=== PATIENT | male | born 1985 | race Caucasian/White ===

== ENCOUNTER 2017-06-26 06:38 | Emergency (ER) | payer OTHER ==
[~2017-06-26] VITALS: Ht 182.9 cm; Wt 88.5 kg
[2017-06-26] MEDS ORDERED: ULTRAM 50MG TAB50 MG PO (08:21)
[2017-06-26] MEDS ORDERED: IBUPROFEN 800800 MG PO (08:21)
[2017-06-26] MEDS ORDERED: AUGMENTIN 500-1 EACH PO (08:21)
[2017-06-26] MEDS ORDERED: BACTRIM DS TAB1 EACH PO (08:21)
[2017-06-26 08:29] VITALS: BP 130/81
== END 2017-06-26 08:30 | disposition home or self-care (01) ==
LOC: M.ERS 06:38
DX: N49.2 Inflammatory disorders of scrotum (principal)

== ENCOUNTER 2017-06-28 07:54 | Inpatient (IN) | payer OTHER ==
[~2017-06-28] VITALS: Ht 182.9 cm; Wt 90.7 kg
[~2017-06-28 07:54] MED LIST: AUGMENTIN 500-1 EACH PO; BACTRIM DS TAB1 EACH PO; IBUPROFEN 800800 MG PO; ULTRAM 50MG TAB50 MG PO
[2017-06-28 08:06] VITALS: BP 142/89
[2017-06-28 09:22] LABS: HEMATOCRIT 43.8 % (42.0-52.0); HEMOGLOBIN 14.4 gm/dL (14.0-18.0); MCH 27.9 pg (26.0-34.0); MCHC 32.9 g/dL (28.0-37.0); MCV 84.8 fL (80.0-100.0); MPV 8.4 fl. (7.2-11.1); NUCLEATED RBCS 0 /100WBC; PLATELET COUNT* 271 thou/uL (150-400); RBC 5.16 mil/uL (4.50-6.00); RDW-CV 14.4 % (10.5-14.5); WBC 17.9 thou/uL (4.0-11.0)
[2017-06-28 09:30] LABS: CREATININE 1.2 mg/dL (0.6-1.3); POTASSIUM 3.1 mmol/L (3.5-5.1); PROTIME 9.6 Seconds (9.20-11.50)
[2017-06-28 09:44] LABS: TOTAL BILIRUBIN 0.7 mg/dL (<0.1-1.0)
[2017-06-28 09:50] VITALS: BP 116/84
[2017-06-28 10:00] VITALS: BP 132/86
--- NOTE | 2017-06-28 10:00 | NUR ---
PATIENT ARRIVED TO UNIT FROM ER AT 0950. ALERT AND ORIENTED X 4. VITAL SIGNS STABLE ON ROOM AIR. IV PATENT WITH VANC INFUSING. ORIENTED PATIENT TO ROOM. CALL LIGHT WITHIN REACH. NURSING WILL CONTINUE TO MONITOR.
[2017-06-28 10:14] LABS: ABSOLUTE EOSINOPHILS 0.2 thou/uL (0.0-0.7); ABSOLUTE MONOCYTES 0.9 thou/uL (0.0-1.2); ABSOLUTE NEUTROPHILS 14.9 thou/uL (1.6-8.1); PLATELET ESTIMATE ADEQUATE
[2017-06-28 15:33] VITALS: BP 109/67
--- NOTE | 2017-06-28 16:44 | NUR ---
PATIENT ALERT AND ORIENTED X 4. VITAL SIGNS STABLE ON ROOM AIR. AFEBRILE. PERRLA. UP AD SERGE IN ROOM AND AMBULATING IN HALLWAYS. IV PATENT WITH FLUIDS INFUSING. DENIES NAUSEA. PAIN BEING MANAGED WITH PO PAIN MEDICATION. RIGHT THIGH ABSCESS AND LEFT SCROTUM ABSCESS RED, WARM, AND DRAINING AT THIS TIME. PICTURES TAKEN UPON ADMISSION. HOURLY ROUNDS MAINTAINED THROUGHOUT THE SHIFT. CALL LIGHT WITHIN REACH. NURSING WILL CONTINUE TO MONITOR.
[2017-06-28 20:20] VITALS: BP 123/81
[2017-06-29 03:45] LABS: HEMATOCRIT 37.9 % (42.0-52.0); MCH 27.8 pg (26.0-34.0); MCHC 32.7 g/dL (28.0-37.0); MCV 84.9 fL (80.0-100.0); RBC 4.46 mil/uL (4.50-6.00); RDW-CV 14.4 % (10.5-14.5); WBC 12.9 thou/uL (4.0-11.0)
[2017-06-29 04:00] LABS: HEMOGLOBIN 12.4 gm/dL (14.0-18.0)
[2017-06-29 04:05] LABS: CALCIUM 8.1 mg/dL (8.5-10.1); CREATININE 1.1 mg/dL (0.6-1.3); POTASSIUM 3.6 mmol/L (3.5-5.1)
--- NOTE | 2017-06-29 07:36 | NUR ---
Alert and oriented x 4. Up independently in room. Abscesses are causing him pain, morphine was ordered for pain. He has 3 different IV antibiotics that he's on. Vitals were stable. he slept well.
[2017-06-29 08:45] VITALS: BP 125/68
[2017-06-29 09:35] VITALS: BP 123/81
[2017-06-29 15:53] VITALS: BP 140/81
--- NOTE | 2017-06-29 18:10 | NUR ---
PATIENT ALERT AND ORIENTED X 4. VITAL SIGNS STABLE ON ROOM AIR. AFEBRILE. PERRLA. UP AD SERGE IN ROOM AND AMBULATING HALLWAYS. IV'S TO LEFT AND RIGHT FOREARM PATENT AND SALINE LOCKED. PAIN AND NAUSEA BEING MANAGED WITH IV MEDICATION. HAD INCISION AND DRAINAGE TODAY TO LEFT SCROTUM, RIGHT MEDIAL THIGH, AND RIGHT LATERAL THIGH. DRESSINGS TO THESE INCISIONS ARE INTACT WITH LITTLE SEROSANGUINOUS DRAINAGE NOTED ON DRESSING. DRESSING TO RIGHT MEDIAL THIGH CHANGED BECAUSE IT FELL OFF. 4X4'S AND BORDERED GAUZE. HOURLY ROUNDS MAINTAINED THROUGHOUT THE SHIFT. CALL LIGHT WITHIN REACH. NURSING WILL CONTINUE TO MONITOR.
[2017-06-29 20:30] VITALS: BP 120/71
[2017-06-29 23:45] VITALS: BP 107/58
[2017-06-30 03:45] VITALS: BP 109/50
[2017-06-30 03:59] LABS: HEMOGLOBIN 12.7 gm/dL (14.0-18.0); MCHC 32.6 g/dL (28.0-37.0); MCV 85.9 fL (80.0-100.0); MPV 7.7 fl. (7.2-11.1); RBC 4.54 mil/uL (4.50-6.00); RDW-CV 14.1 % (10.5-14.5); WBC 13.1 thou/uL (4.0-11.0)
[2017-06-30 04:08] LABS: CALCIUM 7.9 mg/dL (8.5-10.1); CREATININE 0.9 mg/dL (0.6-1.3); POTASSIUM 3.7 mmol/L (3.5-5.1)
--- NOTE | 2017-06-30 06:47 | NUR ---
Alert and oriented x 4. He has bulky dressings x 3 to I&D sites. He's up independently in the room. He's voiding well. Vitals have been stable. He's been having pain meds every 2 hours. He has slept well.
[2017-06-30 07:52] VITALS: BP 111/62
--- NOTE | 2017-06-30 12:01 | NUR ---
CM SPOKE TO THE PATIENT TO DISCUSS HOME SITUATION, DISCHARGE PLANNING, AND TO INFORM OF THE ROLE OF CM. PATIENT ALER, ORIENTED, AND INDEPENDENT WITH ADL'S. PATIENT WORKS AND DRIVES. PATIENT RESIDES AT HOME WITH SIGNIFICANT OTHER AND CHILDREN. PATIENT USES 0 DME. PATIENT HAS NO HX OF HH. PATIENT DOES NOT CURRENTLY HAVE INSURANCE. CM SPOKE TO THE PATIENT TO DISCUSS THE DR'S ORDER FOR ZYVOX AT D/C. PATIENT IN AGREEMENT AND INFORMS THAT HE WILL NEED ASSISTANCE WITH GETTING THR MEDICATION. CM TO CONTACT ZYVOX ASSIST. CM WILL REMAIN AVIALABLE TO ASSIST AND FOLLOW NEEDED.
--- NOTE | 2017-06-30 14:46 | NUR ---
WOUND NURSE: PATIENT SEEN PERTAINING TO SCROTAL AND THIGH LESIONS. PATIENT WAS PROVIDED WITH EDUCATION PERTAINING TO WOUND MANAGEMENT, NUTRITIONAL REQUIREMENTS, POTENTIAL COMPLICATIONS, AND REPORTABLE SIGNS AND SYMPTOMS. PATIENT REPORTS HE UNDERSTANDS. ALSO INFORMED HIM THAT KATHLEEN ALEXANDER RN WILL PROBABLY COME SEE HIM TOMORROW FOR FOLLOWUP. ACCORDING TO STAFF NURSE CARING FOR PATIENT, SURGEON HAS ALREADY MANAGED WOUND TODAY [facility]N WOUND CARE NURSING NOT TO ADDRESS WOUND CARE TODAY.
[2017-06-30 16:00] VITALS: BP 112/60
--- NOTE | 2017-06-30 17:09 | NUR ---
PATIENT REMAINS ALERT AND ORIENTED. ATTEMPTED HYDROCODONE THIS AM BUT PATIENT VOMITED SHORTLY AFTER. PATIENT REQUESTED TO TRY PERCOCET. PERCOCET GIVEN WITH DINNER. PER PATIENT WHEN SURGERY ROUNDED THIS AFTERNOON THEY REQUESTED THE PACKING NOT BE CHANGED TODAY AND WOUND CARE COULD SEE PATIENT TOMORROW FOR TEACHING. PATIENT AMBULATES AD SERGE. REMAINS IN CONTACT ISOLATION. CALL LIGHT WITHIN REACH.WILL CONTINUE TO MONITOR.
[2017-06-30 20:00] VITALS: BP 126/89
[2017-07-01 00:16] VITALS: BP 127/59
--- NOTE | 2017-07-01 05:37 | NUR ---
ASSUMED CARE OF PT AT 1900 ALERT AND ORIENTED X 4 VS AND ASSESSMENT STABLE PT HAD PAIN MEDS X3 AND SLEPT THROUGH THE NIGHT. WILL CONTINUE PLAN OF CARE.
[2017-07-01 08:40] VITALS: BP 124/62
[2017-07-01 10:18] VITALS: BP 124/62
[2017-07-01] MEDS ORDERED: ZYVOX600 MG PO (10:36)
[2017-07-01 10:37] VITALS: BP 124/62
--- NOTE | 2017-07-01 10:45 | NUR ---
WOUND CARE NOTE: CONSULT RECEIVED FOR ABSCESSES/SCROTAL, THIGH, BUTTOCKS PATIENT IS S/P I&D OF ABSCESSES- 06/29/17. FULL THICKNESS ULCERATIONS X3 GROWING PRESUMPTIVE MRSA. COORDINATED WITH PATIENT'S RN FOR PRE-MEDICATION FOR PAIN. LEFT SIDE OF SCROTUM: FULL THICKNESS ULCERATION MEASURING 3X0.8X0.7. RED, MOIST WOUND BED. ANGELITA-WOUND WITH SLIGHT INFLAMMATION. GENTLY CLEANSED WITH WOUND CLEANSER. PACKED WITH 1/4" IODOFORM GAUZE. COVERED WITH 4X4. WOUND IS DRAINING MODERATE AMOUNTS OF SEROSANGUINEOUS DRAINAGE. RIGHT THIGH: FULL THICKNESS ULCERATION MEASURING 1X3X2.1. RED, MOIST WOUND BED. ANGELITA-WOUND WITH SLIGHT INFLAMMATION. GENTLY CLEANSED WITH WOUND CLEANSER. PACKED WITH 1/4" IODOFORM GAUZE. COVERED WITH BORDERED GAUZE. WOUND IS DRAINING MODERATE AMOUNTS OF SEROSANGUINEOUS DRAINAGE. RIGHT TROCHANTER: FULL THICKNESS ULCERATION MEASURING 1X0.6X1. RED, MOIST WOUND BED. ANGELITA-WOUND INTACT. GENTLY CLEANSED WITH WOUND CLEANSER. PACKED WITH 1/4" IODOFORM GAUZE. COVERED WITH BORDERED GAUZE. WOUND IS DRAINING MODERATE AMOUNTS OF SEROSANGUINEOUS DRAINAGE. EDUCATED PATIENT ON: NUTRITION FOR WOUND HEALING SMOKING CESSATION WASHING HANDS PRIOR TO DRESSING CHANGES HOW TO PERFORM DRESSING CHANGES S/S OF INFECTION NO SOAKING IN TUB BATHS PATIENT COMMUNICATED UNDERSTANDING TO ALL EDUCATION AND DID NOT VOICE ANY FURTHER QUESTIONS. RECOMMEND NO SMOKING ENCOURAGE GOOD NUTRITION AND HYDRATION DAILY DRESSING CHANGES
[2017-07-01] MEDS ORDERED: PERCOCET PO (11:09)
--- NOTE | 2017-07-01 12:20 | NUR ---
PATIENT DISCHARGED TO HOME AT THIS TIME. IV REMOVED. WOUND CARE INSTRUCTED PATIENT ON WOUND CARE. PATIENT WAS ABLE TO PACK WOUND HIMSLF. SCRIPTS GIVEN. ZYVOX WILL BE DELIVERED TO PATIENTS HOME TODAY. PATIENT AND SIGNIFICANT OTHER VERBALIZE UNDERSTANDING OF DC INSTRUCTIONS.
--- NOTE | 2017-09-27 10:04 | OP ---
[address] [address] OPERATIVE REPORT Name: DEEP HERRERA Room: [address] IN M.R.#: [id number] Admission: 06/28/17 Attend Phys: Diane Bocanegra MD Discharge: 07/01/17 Date of : 89 Report #: [id number] THIS REPORT FOR: //name// CC: [facility] physician/PCP Diane Bocanegra PREOPERATIVE DIAGNOSES: Scrotal abscess, medial thigh abscess and lateral thigh abscess. PROCEDURE: Incision and drainage of multiple abscesses. SURGEON: Tho Heller MD INDICATIONS: This is a 31-year-old white male who presented to the Emergency Room a few days ago with a thigh and scrotal abscess. Apparently, a small incision was placed in one of those abscesses, started on antibiotics, he had already been on oral antibiotics. The patient came back approximately 24 hours ago, was put on General Surgery Service and given antibiotics. I saw him this morning after I was consulted for the scrotal abscess and deemed that he needs incision and drainage of all the abscesses. He was given this option. He wished to proceed with that as he is progressively getting worse with just antibiotics. He presents now for incision and drainage. He understands risks of bleeding, infection and other procedures, cardiovascular and pulmonary complications. I did talk to the General Surgery Service. They are unavailable to be present for the incision and drainage until much later today and I deemed that it was necessary to proceed. DESCRIPTION OF PROCEDURE: Informed consent was obtained. The patient was prepped and draped in the supine position. First, I did an incision and drainage of the lateral thigh abscess, it was approximately 1 cm across. I made about a 2 cm incision over the top of it and drained all the pockets of abscess, had just small amount of purulence in it, irrigated it out and then used cautery for the skin edges and then packed it with half-inch plain gauze. Next, I moved up to the anterior surface of the thigh and made an incision approximately 4-5 cm in length. All the pockets were broken up. It was copiously irrigated. Skin edges and the deep area was cauterized and likewise this was packed. Similar procedure was done on the scrotal, left side of the scrotum, which was about 6 cm incision and again the skin edges were cauterized and some deeper areas. Copious irrigation was used and then packed thoroughly. Mesh panties were in place. We will consult wound nurse, consult Infectious Disease to try to consolidate antibiotics. Cultures were taken from the abscesses, aerobic and anaerobic. The patient tolerated this well and was taken to recovery room in good condition. <ELECTRONICALLY SIGNED> By: Tho Heller MD 09/27/17 1004 1140 [id number] Heller MD /nt
== END 2017-07-01 12:22 | disposition home or self-care (01) | DRG 603 ==
LOC: M.ERS 07:54 → M.TBA-ER 09:06 → M.ORTHSURG 09:06
PROVIDERS: Family Medicine; Surgery; ADMIT Internal Medicine
PROC: 0V95XZZ Drainage of Scrotum, External Approach (ICD-10-PCS; principal; 2017-06-28)
PROC: 0H9HXZZ Drainage of Right Upper Leg Skin, External Approach (ICD-10-PCS; principal; 2017-06-28)
DX: L03.115 Cellulitis of right lower limb (principal); L02.415 Cutaneous abscess of right lower limb; N49.2 Inflammatory disorders of scrotum; B95.62 Methicillin resistant Staphylococcus aureus infection as the cause of diseases classified elsewhere; Z79.899 Other long term (current) drug therapy

== ENCOUNTER 2017-10-20 06:12 | Emergency (ER) | payer OTHER ==
[~2017-10-20] VITALS: Ht 182.9 cm; Wt 86.2 kg
[~2017-10-20 06:12] MED LIST changes: +PERCOCET PO; +ZYVOX600 MG PO
[2017-10-20 06:59] LABS: ABSOLUTE BASOPHILS 0.2 thou/uL (0.0-0.2); ABSOLUTE EOSINOPHILS 0.2 thou/uL (0.0-0.7); ABSOLUTE LYMPHOCYTES 6.8 thou/uL (0.8-5.3); ABSOLUTE MONOCYTES 1.3 thou/uL (0.0-1.2); ABSOLUTE NEUTROPHILS 3.7 thou/uL (1.6-8.1); BASOPHILS 1.5 %; EOSINOPHILS 1.9 %; HEMATOCRIT 44.8 % (42.0-52.0); HEMOGLOBIN 14.5 gm/dL (14.0-18.0); LYMPHOCYTES 55.6 %; MCH 26.3 pg (26.0-34.0); MCHC 32.5 g/dL (28.0-37.0); MONOCYTES 10.3 %; MPV 7.5 fl. (7.2-11.1); NUCLEATED RBCS 0 /100WBC; PLATELET COUNT* 235 thou/uL (150-400); POLYS 30.7 %; RBC 5.53 mil/uL (4.50-6.00); RDW-CV 14.5 % (10.5-14.5); WBC 12.1 thou/uL (4.0-11.0)
[2017-10-20 07:04] LABS: CALCIUM 8.1 mg/dL (8.5-10.1); CREATININE 1.2 mg/dL (0.6-1.3); POTASSIUM 3.6 mmol/L (3.5-5.1)
[2017-10-20 07:09] LABS: ALBUMIN 2.8 g/dL (3.4-5.0); TOTAL BILIRUBIN 0.3 mg/dL (<0.1-1.0); TOTAL PROTEIN 6.5 g/dL (6.4-8.2)
[2017-10-20 08:52] LABS: URINE BILIRUBIN NEGATIVE (Negative); URINE BLOOD NEGATIVE (Negative); URINE CLARITY CLEAR; URINE COLOR YELLOW; URINE GLUCOSE-RANDOM NEGATIVE (Negative); URINE KETONES NEGATIVE (Negative); URINE LEUKOCYTES-REFLEX NEGATIVE (Negative); URINE NITRITE-REFLEX NEGATIVE (Negative); URINE PROTEIN NEGATIVE (Negative); URINE UROBILINOGEN 0.2 E.U./dl (0.2-1.0)
[2017-10-20] MEDS ORDERED: PROTONIX40 MG PO (09:00)
[2017-10-20] MEDS ORDERED: ZOFRAN4 MG PO (09:00)
[2017-10-20] MEDS ORDERED: VENTOLIN HFA 1818 GM INH (09:00)
[2017-10-20 09:11] VITALS: BP 125/70
--- NOTE | 2017-10-20 15:08 | EKG ---
[place] [address] ELECTROCARDIOGRAM REPORT Name: DEEP HERRERA [id number] Admission: 10/20/17 Attend Phys: Discharge: 10/20/17 Date of : 89 Report #: [id number] THIS REPORT FOR: //name// [facility] ED Test Date: 2017-10-20 Test Time: 07:30:13 Pat Name: DEEP HERRERA Department: Room: Gender: M Clinical Sociologist: [facility] : 1985 Requested By: Antoni Mcallister Order Number: [id number] MD: Drew Robles Measurements Intervals [place] Rate: 109 P: 63 [place]: 176 QRS: 68 QRSD: 105 T: -30 QT: 325 QTc: 438 Interpretive Statements Sinus tachycardia Probable left atrial enlargement Borderline T abnormalities, inferior leads No previous ECG available for comparison Electronically Signed On 10-20-2017 15:07:59 CDT by Drew Robles [email or web address] <ELECTRONICALLY SIGNED> By: Drew Robles MD, [facility] 10/20/17 1507 0730 0730 Drew Robles MD, FACC /EPI
== END 2017-10-20 09:13 | disposition home or self-care (01) ==
LOC: M.ERS 06:12
PROVIDERS: Emergency Medicine
DX: K21.9 Gastro-esophageal reflux disease without esophagitis (principal); R11.2 Nausea with vomiting, unspecified; R42 Dizziness and giddiness; Z88.5 Allergy status to narcotic agent

== ENCOUNTER 2019-08-30 15:47 | Emergency (ER) | payer OTHER ==
[~2019-08-30] VITALS: Ht 182.9 cm; Wt 90.7 kg
[~2019-08-30 15:47] MED LIST changes: +PROTONIX40 MG PO; +VENTOLIN HFA 1818 GM INH; +ZOFRAN4 MG PO
[2019-08-30 16:22] LABS: ABSOLUTE BASOPHILS 0.1 thou/uL (0.0-0.2); ABSOLUTE EOSINOPHILS 0.1 thou/uL (0.0-0.7); ABSOLUTE LYMPHOCYTES 3.4 thou/uL (0.8-5.3); ABSOLUTE NEUTROPHILS 6.4 thou/uL (1.6-8.1); BASOPHILS 1.1 %; EOSINOPHILS 0.8 %; HEMATOCRIT 46.7 % (42.0-52.0); HEMOGLOBIN 15.8 gm/dL (14.0-18.0); MCH 28.2 pg (26.0-34.0); MCHC 33.8 g/dL (28.0-37.0); MCV 83.4 fL (80.0-100.0); MONOCYTES 8.9 %; MPV 7.7 fl. (7.2-11.1); NUCLEATED RBCS 0 /100WBC; PLATELET COUNT* 263 thou/uL (150-400); POLYS 58.2 %; RDW-CV 13.8 % (10.5-14.5)
[2019-08-30 16:32] LABS: URINE BLOOD TRACE (Negative); URINE CLARITY CLEAR; URINE COLOR YELLOW; URINE GLUCOSE-RANDOM NEGATIVE (Negative); URINE KETONES TRACE (Negative); URINE LEUKOCYTES-REFLEX NEGATIVE (Negative); URINE NITRITE-REFLEX NEGATIVE (Negative); URINE PROTEIN 1+ (Negative); URINE SPECIFIC GRAVITY >= 1.030 (1.005-1.030); URINE UROBILINOGEN 0.2 E.U./dl (0.2-1.0)
[2019-08-30 16:33] LABS: CALCIUM 8.5 mg/dL (8.5-10.1); CREATININE 1.2 mg/dL (0.6-1.3); POTASSIUM 3.4 mmol/L (3.5-5.1)
[2019-08-30 16:38] LABS: ALBUMIN 4.2 g/dL (3.4-5.0); TOTAL BILIRUBIN 1.2 mg/dL (<0.1-1.0); TOTAL PROTEIN 8.1 g/dL (6.4-8.2)
[2019-08-30 16:48] LABS: ICTOTEST (BILI CONFIRMATORY) Negative (Negative); URINE BILIRUBIN 2+ (Negative)
[2019-08-30] MEDS ORDERED: ONDANSETRON ODT4 MG PO (18:06)
[2019-08-30 18:18] VITALS: BP 130/77
== END 2019-08-30 18:20 | disposition home or self-care (01) ==
LOC: M.ERS 15:47
PROVIDERS: Physician Assistant
DX: R11.2 Nausea with vomiting, unspecified (principal); Z88.6 Allergy status to analgesic agent

== ENCOUNTER 2020-02-01 19:36 | Emergency (ER) | payer OTHER ==
[~2020-02-01] VITALS: Ht 182.9 cm; Wt 102.1 kg
[~2020-02-01 19:36] MED LIST changes: +ONDANSETRON ODT4 MG PO
[2020-02-01 20:27] LABS: ABSOLUTE BASOPHILS 0.1 thou/uL (0.0-0.2); ABSOLUTE LYMPHOCYTES 2.1 thou/uL (0.8-5.3); ABSOLUTE MONOCYTES 0.8 thou/uL (0.0-1.2); ABSOLUTE NEUTROPHILS 6.5 thou/uL (1.6-8.1); BASOPHILS 0.5 %; EOSINOPHILS 0.3 %; HEMATOCRIT 47.7 % (42.0-52.0); HEMOGLOBIN 16.1 gm/dL (14.0-18.0); LYMPHOCYTES 21.8 %; MCH 28.5 pg (26.0-34.0); MCHC 33.8 g/dL (28.0-37.0); MCV 84.2 fL (80.0-100.0); MONOCYTES 8.3 %; MPV 6.8 fl. (7.2-11.1); NUCLEATED RBCS 0 /100WBC; PLATELET COUNT* 228 thou/uL (150-400); POLYS 69.1 %; RBC 5.67 mil/uL (4.50-6.00); RDW-CV 14.4 % (10.5-14.5); WBC 9.5 thou/uL (4.0-11.0)
[2020-02-01 20:39] LABS: POTASSIUM 3.9 mmol/L (3.5-5.1)
[2020-02-01 20:43] LABS: TOTAL BILIRUBIN 0.5 mg/dL (<0.1-1.0); TOTAL PROTEIN 7.9 g/dL (6.4-8.2)
[2020-02-01 20:48] LABS: PROTIME 10.9 Seconds (9.20-11.50)
[2020-02-01] MEDS ORDERED: OMEPRAZOLE40 MG PO (21:29)
[2020-02-01] MEDS ORDERED: ZOFRAN ODT4 MG PO (21:29)
[2020-02-01] MEDS ORDERED: CARAFATE 1 GM TA1 GM PO (21:29)
[2020-02-01 21:52] VITALS: BP 128/90
--- NOTE | 2020-02-02 10:03 | EKG ---
[place] [address] ELECTROCARDIOGRAM REPORT Name: DEEP HERRERA Room: [facility]#: [id number] Admission: 02/01/20 Attend Phys: Discharge: 02/01/20 Date of : 89 Date of Service: 02/01/201943 Report #: [id number] THIS REPORT FOR: //name// [facility] ED Test Date: 2020-02-01 Test Time: 19:44:55 Pat Name: DEEP HERRERA Department: Room: Gender: Barrel [place]: [place] : 1985 Requested By: Belkys Presley Order Number: [id number] MD: Wicho Solomon Measurements Intervals [place] Rate: 109 P: 74 [place]: 163 QRS: 95 QRSD: 103 T: 33 QT: 332 QTc: 448 Interpretive Statements Sinus tachycardia Left posterior fascicular block Compared to ECG 10/20/2017 07:30:13 Left posterior fascicular block now present Electronically Signed On 02-02-2020 10:02:59 OCCUPATIONAL HEALTH AND SAF[employer]Y OFFICER by Wicho Solomon [email or web address] <ELECTRONICALLY SIGNED> By: Wicho Solomon MD, [facility] 02/02/20 1002 43 43 Wicho Solomon MD, [facility] /EPI
== END 2020-02-01 21:52 | disposition home or self-care (01) ==
LOC: M.ERS 19:36
PROVIDERS: Personal Emergency Response Attendant
DX: K92.0 Hematemesis (principal); R10.13 Epigastric pain; R10.11 Right upper quadrant pain

== ENCOUNTER 2020-10-04 19:20 | Emergency (ER) | payer OTHER ==
[~2020-10-04] VITALS: Ht 182.9 cm; Wt 90.7 kg
[~2020-10-04 19:20] MED LIST changes: +CARAFATE 1 GM TA1 GM PO; +OMEPRAZOLE40 MG PO; +ZOFRAN ODT4 MG PO
[2020-10-04 19:56] LABS: URINE BILIRUBIN NEGATIVE (Negative); URINE BLOOD NEGATIVE (Negative); URINE CLARITY CLEAR; URINE COLOR YELLOW; URINE GLUCOSE-RANDOM NEGATIVE (Negative); URINE KETONES TRACE (Negative); URINE LEUKOCYTES-REFLEX NEGATIVE (Negative); URINE NITRITE-REFLEX NEGATIVE (Negative); URINE PROTEIN TRACE (Negative); URINE SPECIFIC GRAVITY >= 1.030 (1.005-1.030); URINE UROBILINOGEN 0.2 E.U./dl (0.2-1.0)
[2020-10-04 20:07] LABS: ABSOLUTE BASOPHILS 0.1 thou/uL (0.0-0.2); ABSOLUTE EOSINOPHILS 0.1 thou/uL (0.0-0.7); ABSOLUTE LYMPHOCYTES 2.6 thou/uL (0.8-5.3); ABSOLUTE MONOCYTES 0.5 thou/uL (0.0-1.2); ABSOLUTE NEUTROPHILS 4.4 thou/uL (1.6-8.1); BASOPHILS 1.6 %; EOSINOPHILS 1.4 %; HEMATOCRIT 49.3 % (42.0-52.0); HEMOGLOBIN 16.6 gm/dL (14.0-18.0); LYMPHOCYTES 32.9 %; MCH 29.1 pg (26.0-34.0); MCHC 33.6 g/dL (28.0-37.0); MCV 86.7 fL (80.0-100.0); MONOCYTES 6.8 %; MPV 7.6 fl. (7.2-11.1); NUCLEATED RBCS 0 /100WBC; PLATELET COUNT* 223 thou/uL (150-400); POLYS 57.3 %; RBC 5.68 mil/uL (4.50-6.00); RDW-CV 13.3 % (10.5-14.5); WBC 7.8 thou/uL (4.0-11.0)
[2020-10-04 20:19] LABS: CALCIUM 8.8 mg/dL (8.5-10.1); CREATININE 0.8 mg/dL (0.6-1.3); POTASSIUM 3.1 mmol/L (3.5-5.1)
[2020-10-04 20:24] LABS: ALBUMIN 4.2 g/dL (3.4-5.0); TOTAL BILIRUBIN 0.9 mg/dL (<0.1-1.0); TOTAL PROTEIN 8.1 g/dL (6.4-8.2)
[2020-10-04] MEDS ORDERED: POTASSIUM20 PO (21:54)
[2020-10-04] MEDS ORDERED: ZESTRIL5 MG PO (21:54)
[2020-10-04] MEDS ORDERED: ZOFRAN ODT4 MG PO (21:54)
[2020-10-04] MEDS ORDERED: NORCO5 PO (22:01)
[2020-10-04 22:46] VITALS: BP 148/96
[2020-10-06 02:06] LABS: HEPATITIS B SURFACE AG Negative (Negative)
== END 2020-10-04 22:48 | disposition home or self-care (01) ==
LOC: M.ERS 19:20
PROVIDERS: Emergency Medicine; Nurse Practitioner Psychiatric/Mental Health
DX: R11.2 Nausea with vomiting, unspecified (principal); R10.31 Right lower quadrant pain; R10.32 Left lower quadrant pain; E87.6 Hypokalemia; R74.01 Elevation of levels of liver transaminase levels

== ENCOUNTER → 2021-02-26 | Emergency (ER) | payer OTHER ==
[~2021-02-26] VITALS: Ht 182.9 cm; Wt 88.5 kg
[~2021-02-26] MED LIST changes: +NEXIUM20 M1 PO; +NORCO5 PO; +POTASSIUM20 PO; +ZESTRIL5 MG PO
[2021-02-26 19:07] VITALS: BP 140/92
--- NOTE | 2021-02-27 10:39 | EKG ---
[place] [address] ELECTROCARDIOGRAM REPORT Name: JEFFERSON HERRERA Room: [facility]#: [id number] Admission: 02/26/21 Attend Phys: Discharge: Date of : 89 Date of Service: 02/26/211913 Report #: [id number] THIS REPORT FOR: //name// [facility] ED Test Date: 2021-02-26 Test Time: 19:14:59 Pat Name: JEFFERSON HERRERA Department: Room: Gender: Guide: TAMY : 1985 Requested By: Palmer Lechuga Order Number: [id number] MD: Jefferson Salazar Measurements Intervals [place] Rate: 107 P: 62 [place]: 160 QRS: 86 QRSD: 104 T: -82 QT: 344 QTc: 459 Interpretive Statements Sinus tachycardia Left atrial enlargement Nonspecific T abnormalities, diffuse leads Compared to ECG 02/01/2020 19:44:55 Atrial abnormality now present T-wave abnormality now present Left posterior fascicular block no longer present Electronically Signed On 02-27-2021 10:39:42 [employer] by Jefferson Salazar [email or web address] <ELECTRONICALLY SIGNED> By: Jefferson Salazar MD, FACC 02/27/21 1039 13 13 Jefferson Salazar MD, [facility] /EPI
== END ==
LOC: M.ERS 19:04
DX: R06.02 Shortness of breath (principal); R55 Syncope and collapse; Z53.21 Procedure and treatment not carried out due to patient leaving prior to being seen by health care provider